=== PATIENT | female | born 1950 | race Caucasian/White ===

== ENCOUNTER 2017-01-18 16:23 | Inpatient (IN) | payer MEDICARE, BC ==
[~2017-01-18] VITALS: Ht 165.1 cm; Wt 54.9 kg
--- NOTE | 2017-01-18 17:00 | NUR ---
GPS/RN PATIENT ADMITTED ON A 5150 HOLD FOR GD, UNDER THE CARE OF DR VARGAS AND DR RICHARD. BOTH DR,S NOTIFIED OF ADMISSION. PER HOLD PATIENT ATTEMPTED TO CLIMB A 7 FOOT FENCE AND IS DISORGANIZED, DELUSIONAL, PARANOID, THINKS PEOPLE ARE TRYING TO GET HER AND REFUSING MEDICATION. UPON FACE TO FACE EVALUATION, PATIENT IS ALERT X 2, ANXIOUS, DISORGANIZED THOUGHTS, STATED PEOPLE WERE BREAKING INTO HER HOME EACH WEEK AND POLICE ARE REFUSING TO HELP HER. VITAL SIGNS STABLE, DENIES SI/HI, WILL CONTINUE TO MONITOR Q 15 MIN FOR SAFETY AND BEHAVIOR.
[2017-01-18] MEDS ORDERED: MAGNESIUM HYDROXIDE 30 ML UDC PO PRN (17:30)
[2017-01-18] MEDS ORDERED: MAG HYDROX/AL HYDROX/SIMETH 30 ML UDC PO PRN (17:30)
[2017-01-18] MEDS ORDERED: ACETAMINOPHEN 325 MG TABLET PO PRN (17:30)
[2017-01-18 18:52] VITALS: BP 139/90
[2017-01-18] MEDS ORDERED: CALC-838 PO (19:01)
[2017-01-18] MEDS ORDERED: DONE5TAB34 PO (19:01)
[2017-01-18] MEDS ORDERED: MULT-1160 PO (19:01)
[2017-01-18] MEDS ORDERED: QUET50TA PO (19:01)
[2017-01-18] MEDS ORDERED: VALA500T35 PO (19:01)
[2017-01-18] MEDS ORDERED: POTA20TA83 PO (20:10)
[2017-01-18] MEDS ORDERED: SULF1TAB48 PO (20:10)
[2017-01-18 20:24] VITALS: BP 141/83
[2017-01-18] MEDS: TEMAZEPAM 7.5 MG CAPSULE PO PRN (23:20)
[2017-01-19 08:00] VITALS: BP 130/71
[2017-01-19 09:44] LABS: ALBUMIN 4.1 g/dL (3.4-5.0); BILIRUBIN,TOTAL 0.8 mg/dL (0.2-1.0); CALCIUM, SERUM 9.3 mg/dL (8.5-10.1); CREATININE 0.9 mg/dL (0.6-1.3); POTASSIUM 3.9 mmol/L (3.5-5.1); TOTAL PROTEIN, SERUM 7.7 g/dL (6.4-8.2)
--- NOTE | 2017-01-19 12:47 | NUR ---
Initial DC Plan: Patient resides at [facility] ([address] [place] [address]; [phone]).Facility provided letter of agreement to accept the patient once she is discharged from the hospital and stated that they have their own transportation and route salesman and driver available that can pick her up once she is ready (between the hours of 10am and 2pm). BASIM confirmed with Francheska from [facility] who confirmed that patient is able to return when ready for discharge. Facility will need advanced notice of patient's discharge. SW to contact Ann from the facility once patient is ready. Sw attempted to contact the patient's Guicho Manley ([phone]) however he did not answer and SW left a message with her contact information. SW will help form a safe and proper discharge. Addendum: 01/20/17 at 0918 by CHINO STALLWORTH Spoke to patient's Guicho Leyvane ([phone]) who stated that he would like for patient to return back to [facility]. Also stated that patient was taking Seroquel 200mg upon the recommendation of her general practitioner. SW informed assigned licensed social worker Wilver regarding this information and she is to contact the patient's psychiatrist. requested to speak to patient's psychiatrist and assigned licensed social worker will facilitate this.
[2017-01-19] MEDS ORDERED: POTASSIUM CHLORIDE 20 MEQ TAB.PRT.SR PO SCH (13:30)
[2017-01-19] MEDS ORDERED: BENZTROPINE MESYLATE (1 MG) 1 MG TABLET PO SCH (14:30)
[2017-01-19] MEDS: SERTRALINE HCL 25 MG TABLET PO SCH (15:34)
[2017-01-19 16:00] VITALS: BP 149/80
[2017-01-19] MEDS: SULFAMETH/TRIMETH 800/160 MG 1 UDTAB TABLET PO SCH (16:23)
[2017-01-19] MEDS: HALOPERIDOL 1 MG TABLET PO SCH (16:24)
[2017-01-19] MEDS: LORAZEPAM 0.5 MG TABLET PO PRN (19:26)
[2017-01-19 20:00] VITALS: BP 141/95
[2017-01-19] MEDS: TEMAZEPAM 7.5 MG CAPSULE PO PRN (20:35)
[2017-01-20 06:53] LABS: BASOPHILS % (AUTO) 0.8 % (0.0-2.0); EOSINOPHILS # (AUTO) 0.1 /CMM (0.0-0.7); EOSINOPHILS % (AUTO) 1.5 % (0.0-6.0); HEMATOCRIT 39 % (33-45); HEMOGLOBIN 12.8 g/dL (11.5-14.8); LYMPHOCYTES # (AUTO) 1.4 /CMM (0.8-4.8); MEAN CORPUSCULAR HEMOGLOBIN 31 PG (26.0-33.0); MEAN CORPUSCULAR HGB CONC 33 g/dl (31.0-36.0); MEAN CORPUSCULAR VOLUME 92 fL (82-100); MONOCYTES # (AUTO) 0.5 /CMM (0.1-1.30); MONOCYTES % (AUTO) 9.2 % (2.0-12.0); NEUTROPHILS # (AUTO) 3.7 /CMM (1.8-8.9); NEUTROPHILS % (AUTO) 64.5 % (43.0-81.0); PLATELET COUNT (AUTO) 313 /CMM (150-450); RDW COEFFICIENT OF VARIATION 13.4 (11.5-15.0); RED BLOOD CELL COUNT(AUTO) 4.19 MIL/uL (4.0-5.2); WHITE BLOOD COUNT (AUTO) 5.7 K/uL (4.3-11.0)
[2017-01-20 08:00] VITALS: BP 123/75
[2017-01-20] MEDS: VALACYCLOVIR HCL 500 MG TABLET PO SCH (08:47)
[2017-01-20] MEDS: SULFAMETH/TRIMETH 800/160 MG 1 UDTAB TABLET PO SCH ×2 (08:47→16:47)
[2017-01-20] MEDS: SERTRALINE HCL 25 MG TABLET PO SCH (08:47)
[2017-01-20] MEDS: BENZTROPINE MESYLATE (1 MG) 1 MG TABLET PO SCH ×2 (08:47→16:48)
[2017-01-20] MEDS: MULTIPLE VIT/MINERALS 1 EA TABLET PO SCH (08:47)
[2017-01-20] MEDS: HALOPERIDOL 1 MG TABLET PO SCH ×2 (08:47→16:47)
[2017-01-20] MEDS: DONEPEZIL 5 MG TABLET PO SCH (08:47)
[2017-01-20] MEDS: CHOLECALCIFEROL 1,000 UNIT TABLET (VIT D3) PO SCH (08:48)
--- NOTE | 2017-01-20 10:15 | NUR ---
Vegetable Canner informed patient's psychiatrist regarding patient's 's concerns regarding patient's medication. Psychiatrist will follow-up with patient's .
[2017-01-20 16:07] VITALS: BP 146/91
[2017-01-20 20:00] VITALS: BP 126/77
[2017-01-20] MEDS: TEMAZEPAM 7.5 MG CAPSULE PO PRN (22:21)
[2017-01-21 08:31] VITALS: BP 123/78
[2017-01-21] MEDS: CHOLECALCIFEROL 1,000 UNIT TABLET (VIT D3) PO SCH (09:01)
[2017-01-21] MEDS: SULFAMETH/TRIMETH 800/160 MG 1 UDTAB TABLET PO SCH ×2 (09:01→16:17)
[2017-01-21] MEDS: SERTRALINE HCL 25 MG TABLET PO SCH (09:02)
[2017-01-21] MEDS: DONEPEZIL 5 MG TABLET PO SCH (09:02)
[2017-01-21] MEDS: VALACYCLOVIR HCL 500 MG TABLET PO SCH (09:02)
[2017-01-21] MEDS: BENZTROPINE MESYLATE (1 MG) 1 MG TABLET PO SCH ×2 (09:02→16:18)
[2017-01-21] MEDS: HALOPERIDOL 1 MG TABLET PO SCH ×2 (09:02→16:17)
[2017-01-21] MEDS: MULTIPLE VIT/MINERALS 1 EA TABLET PO SCH (09:02)
--- NOTE | 2017-01-21 11:11 | NUR ---
DR. VARGAS GAVE AN ORDER FOR THE DENIAL RIGHTS FOR ROOM SEARCH TO LOOK FOR THE MISSING CORDLESS PHONES.
[2017-01-21 16:21] VITALS: BP 146/85
[2017-01-21 20:00] VITALS: BP 146/76
[2017-01-22 08:00] VITALS: BP 148/77
[2017-01-22] MEDS: VALACYCLOVIR HCL 500 MG TABLET PO SCH (08:43)
[2017-01-22] MEDS: SERTRALINE HCL 25 MG TABLET PO SCH (08:43)
[2017-01-22] MEDS: HALOPERIDOL 1 MG TABLET PO SCH ×2 (08:43→17:31)
[2017-01-22] MEDS: BENZTROPINE MESYLATE (1 MG) 1 MG TABLET PO SCH ×2 (08:43→17:31)
[2017-01-22] MEDS: DONEPEZIL 5 MG TABLET PO SCH (08:43)
[2017-01-22] MEDS: MULTIPLE VIT/MINERALS 1 EA TABLET PO SCH (08:43)
[2017-01-22] MEDS: SULFAMETH/TRIMETH 800/160 MG 1 UDTAB TABLET PO SCH ×2 (08:43→17:31)
[2017-01-22] MEDS: CHOLECALCIFEROL 1,000 UNIT TABLET (VIT D3) PO SCH (08:43)
--- NOTE | 2017-01-22 13:50 | NUR ---
RT PATIENT WAS SEEN WALKING THROUGH HALLWAYS AND WAS ASKED IF SHE HAD ANY CHEST PAIN, PATIENT SAID NO. PATIENT WAS ASKED IF SHE WOULD ALLOW US TO PERFORM EKG, PATIENT SAID NO SHE DOES NOT NEED IT. NURSING STAFF INFORMED. HOTEL SERVICE SUPERVISOR NURSE SERENITY OLIVEIRA.
[2017-01-22 16:00] VITALS: BP 130/70
[2017-01-22 20:17] VITALS: BP 146/99
[2017-01-23 08:00] VITALS: BP 131/77
[2017-01-23] MEDS: DONEPEZIL 5 MG TABLET PO SCH (08:29)
[2017-01-23] MEDS: MULTIPLE VIT/MINERALS 1 EA TABLET PO SCH (08:30)
[2017-01-23] MEDS: SULFAMETH/TRIMETH 800/160 MG 1 UDTAB TABLET PO SCH ×2 (08:30→16:31)
[2017-01-23] MEDS: BENZTROPINE MESYLATE (1 MG) 1 MG TABLET PO SCH ×2 (08:30→16:31)
[2017-01-23] MEDS: HALOPERIDOL 1 MG TABLET PO SCH ×2 (08:31→16:32)
[2017-01-23] MEDS: SERTRALINE HCL 25 MG TABLET PO SCH (08:31)
[2017-01-23] MEDS: CHOLECALCIFEROL 1,000 UNIT TABLET (VIT D3) PO SCH (08:32)
[2017-01-23] MEDS: VALACYCLOVIR HCL 500 MG TABLET PO SCH (08:33)
[2017-01-23 16:00] VITALS: BP 123/77
[2017-01-23 21:35] VITALS: BP 123/63
[2017-01-23] MEDS: TEMAZEPAM 7.5 MG CAPSULE PO PRN (22:40)
--- NOTE | 2017-01-24 | NUR ---
GPS RN NOTE: 1929: RECEIVED A REPORT THAT PATIENT WAS CRAWLING TOWARDS RESTROOM. ASSISTED THE PATIENT BACK TO BED. ASSESSMENT DONE. NO VISUAL INJURY NOTED AT THIS TIME. EXTREMITIES ABLE TO MOVE WITHOUT C/O PAIN AND DISCOMFORT. NO SOB, NO ACUTE DISTRESS, BREATHING EVEN AND UNLABORED, PATIENT DENIES PAIN AND DISCOMFORT, CONFUSED AND FORGETFUL, SAME BASELINE, FORGOT WHAT HAPPENED. WILL CONTINUE TO MONITOR. 0000: PATIENT STABLE. NO VISUAL INJURY. NO SIGNIFICANT CHANGE OF CONDITION NOTED. NOTIFIED SCOTTIE BUTLER WITH NO NEW ORDER GIVEN. WILL CONTINUE TO MONITOR.
[2017-01-24] MEDS: MULTIPLE VIT/MINERALS 1 EA TABLET PO SCH (08:14)
[2017-01-24] MEDS: DONEPEZIL 5 MG TABLET PO SCH (08:14)
[2017-01-24] MEDS: HALOPERIDOL 1 MG TABLET PO SCH (08:15)
[2017-01-24] MEDS: SULFAMETH/TRIMETH 800/160 MG 1 UDTAB TABLET PO SCH ×2 (08:15→16:42)
[2017-01-24] MEDS: BENZTROPINE MESYLATE (1 MG) 1 MG TABLET PO SCH ×2 (08:15→16:42)
[2017-01-24] MEDS: VALACYCLOVIR HCL 500 MG TABLET PO SCH (08:16)
[2017-01-24] MEDS: CHOLECALCIFEROL 1,000 UNIT TABLET (VIT D3) PO SCH (08:16)
[2017-01-24] MEDS: SERTRALINE HCL 25 MG TABLET PO SCH (08:17)
[2017-01-24 08:35] VITALS: BP 107/64
[2017-01-24] MEDS ORDERED: HALOPERIDOL DECANOATE IM 100 MG/ML AMPUL IM ONE (14:00)
[2017-01-24 16:00] VITALS: BP 108/70
[2017-01-24] MEDS: TEMAZEPAM 7.5 MG CAPSULE PO PRN (22:24)
[2017-01-25 08:00] VITALS: BP 125/80
[2017-01-25] MEDS: LORAZEPAM 0.5 MG TABLET PO PRN (08:08)
[2017-01-25] MEDS: HALOPERIDOL 1 MG TABLET PO SCH ×2 (08:08→16:22)
[2017-01-25] MEDS: BENZTROPINE MESYLATE (1 MG) 1 MG TABLET PO SCH ×2 (08:08→16:22)
[2017-01-25] MEDS: CHOLECALCIFEROL 1,000 UNIT TABLET (VIT D3) PO SCH (08:08)
--- NOTE | 2017-01-25 08:08 | NUR ---
[id number]: GAVE ATIVAN 0.5 MG PO DUE TO SEVERE ANXIETY UPON PT REQUEST AND WILL CONTINUE TO MONITOR FOR EFFECTIVENESS
[2017-01-25] MEDS: SULFAMETH/TRIMETH 800/160 MG 1 UDTAB TABLET PO SCH ×2 (08:09→16:22)
[2017-01-25] MEDS: VALACYCLOVIR HCL 500 MG TABLET PO SCH (08:09)
[2017-01-25] MEDS: MULTIPLE VIT/MINERALS 1 EA TABLET PO SCH (08:09)
[2017-01-25] MEDS: DONEPEZIL 5 MG TABLET PO SCH (08:09)
[2017-01-25] MEDS ORDERED: SERTRALINE HCL 25 MG TABLET PO SCH (09:00)
[2017-01-25] MEDS: BOOST PLUS FOOD-VANILLA 237 ML BOX PO SCH (14:09)
[2017-01-25 17:16] VITALS: BP 124/74
[2017-01-25] MEDS: QUETIAPINE FUMARATE 25 MG TABLET PO SCH (21:37)
[2017-01-26] MEDS: TEMAZEPAM 7.5 MG CAPSULE PO PRN ×2 (00:30→22:21)
[2017-01-26 08:00] VITALS: BP 115/58
[2017-01-26] MEDS ORDERED: HALOPERIDOL DECANOATE IM 100 MG/ML AMPUL IM ONE (09:00)
[2017-01-26] MEDS: MULTIPLE VIT/MINERALS 1 EA TABLET PO SCH (09:03)
[2017-01-26] MEDS: CHOLECALCIFEROL 1,000 UNIT TABLET (VIT D3) PO SCH (09:03)
[2017-01-26] MEDS: DONEPEZIL 5 MG TABLET PO SCH (09:03)
[2017-01-26] MEDS: SULFAMETH/TRIMETH 800/160 MG 1 UDTAB TABLET PO SCH ×2 (09:03→16:34)
[2017-01-26] MEDS: BENZTROPINE MESYLATE (1 MG) 1 MG TABLET PO SCH ×2 (09:03→16:36)
[2017-01-26] MEDS: VALACYCLOVIR HCL 500 MG TABLET PO SCH (09:03)
[2017-01-26] MEDS: HALOPERIDOL 1 MG TABLET PO SCH ×2 (09:03→16:35)
[2017-01-26] MEDS: BOOST PLUS FOOD-VANILLA 237 ML BOX PO SCH (09:13)
--- NOTE | 2017-01-26 13:22 | NUR ---
SW followed up with the psychiatrist and pt will be ready for discharge on Monday back to her facility.
[2017-01-26 16:00] VITALS: BP 111/70
[2017-01-26 20:00] VITALS: BP 115/79
[2017-01-26] MEDS: QUETIAPINE FUMARATE 25 MG TABLET PO SCH (21:09)
[2017-01-27 07:36] LABS: EOSINOPHILS # (AUTO) 0.3 /CMM (0.0-0.7); EOSINOPHILS % (AUTO) 5.5 % (0.0-6.0); HEMATOCRIT 40 % (33-45); HEMOGLOBIN 13.3 g/dL (11.5-14.8); LYMPHOCYTES # (AUTO) 0.6 /CMM (0.8-4.8); LYMPHOCYTES % (AUTO) 12.3 % (20.0-44.0); MEAN CORPUSCULAR HEMOGLOBIN 31 PG (26.0-33.0); MEAN CORPUSCULAR HGB CONC 34 g/dl (31.0-36.0); MEAN CORPUSCULAR VOLUME 92 fL (82-100); MONOCYTES # (AUTO) 0.4 /CMM (0.1-1.30); MONOCYTES % (AUTO) 8.9 % (2.0-12.0); NEUTROPHILS # (AUTO) 3.6 /CMM (1.8-8.9); NEUTROPHILS % (AUTO) 73.3 % (43.0-81.0); PLATELET COUNT (AUTO) 228 /CMM (150-450); RDW COEFFICIENT OF VARIATION 13.4 (11.5-15.0); RED BLOOD CELL COUNT(AUTO) 4.32 MIL/uL (4.0-5.2); WHITE BLOOD COUNT (AUTO) 4.9 K/uL (4.3-11.0)
[2017-01-27 07:52] LABS: CALCIUM, SERUM 8.8 mg/dL (8.5-10.1); CREATININE 0.8 mg/dL (0.6-1.3); MAGNESIUM 2.2 mg/dL (1.8-2.4); POTASSIUM 4.2 mmol/L (3.5-5.1)
[2017-01-27 08:00] VITALS: BP 120/75
[2017-01-27] MEDS: HALOPERIDOL 1 MG TABLET PO SCH (08:29)
[2017-01-27] MEDS: BENZTROPINE MESYLATE (1 MG) 1 MG TABLET PO SCH ×2 (08:30→16:24)
[2017-01-27] MEDS: VALACYCLOVIR HCL 500 MG TABLET PO SCH (08:30)
[2017-01-27] MEDS: MULTIPLE VIT/MINERALS 1 EA TABLET PO SCH (08:30)
[2017-01-27] MEDS: SULFAMETH/TRIMETH 800/160 MG 1 UDTAB TABLET PO SCH (08:32)
[2017-01-27] MEDS: BOOST PLUS FOOD-VANILLA 237 ML BOX PO SCH (08:34)
[2017-01-27] MEDS: DONEPEZIL 5 MG TABLET PO SCH (08:34)
[2017-01-27] MEDS: CHOLECALCIFEROL 1,000 UNIT TABLET (VIT D3) PO SCH (08:34)
[2017-01-27 16:00] VITALS: BP 137/83
--- NOTE | 2017-01-27 16:00 | NUR ---
BASIM spoke with MD and pt's , Guicho Manley ([phone]) and it was decided that pt. cannot return to the open unit. BASIM faxed a referral to [facility] [id number] [facility], [place] [address] . will check with December from the facility. Addendum: 01/30/17 at 1129 by LARRY STALLWORTH Pt. has been accepted to [facility] per December from admission.
[2017-01-27] MEDS ORDERED: BENZTROPINE MESYLATE (1 MG) 1 MG TABLET PO PRN (16:30)
[2017-01-27 20:00] VITALS: BP 132/56
[2017-01-27 20:15] VITALS: BP 132/56
[2017-01-27] MEDS: QUETIAPINE FUMARATE 25 MG TABLET PO SCH (21:13)
[2017-01-27] MEDS: TEMAZEPAM 7.5 MG CAPSULE PO PRN (22:18)
[2017-01-28 08:00] VITALS: BP 101/61
[2017-01-28] MEDS: CHOLECALCIFEROL 1,000 UNIT TABLET (VIT D3) PO SCH (08:52)
[2017-01-28] MEDS: DONEPEZIL 5 MG TABLET PO SCH (08:52)
[2017-01-28] MEDS: VALACYCLOVIR HCL 500 MG TABLET PO SCH (08:52)
[2017-01-28] MEDS: BOOST PLUS FOOD-VANILLA 237 ML BOX PO SCH (08:52)
[2017-01-28] MEDS: BENZTROPINE MESYLATE (1 MG) 1 MG TABLET PO SCH ×2 (08:52→16:31)
[2017-01-28] MEDS: MULTIPLE VIT/MINERALS 1 EA TABLET PO SCH (08:52)
[2017-01-28 16:00] VITALS: BP 107/68
[2017-01-28 20:00] VITALS: BP 106/66
[2017-01-28] MEDS: QUETIAPINE FUMARATE 25 MG TABLET PO SCH (21:15)
[2017-01-28] MEDS: TEMAZEPAM 7.5 MG CAPSULE PO PRN (22:07)
[2017-01-29 08:00] VITALS: BP 101/62
[2017-01-29] MEDS: MULTIPLE VIT/MINERALS 1 EA TABLET PO SCH (08:04)
[2017-01-29] MEDS: BENZTROPINE MESYLATE (1 MG) 1 MG TABLET PO SCH ×2 (08:04→16:44)
[2017-01-29] MEDS: DONEPEZIL 5 MG TABLET PO SCH (08:04)
[2017-01-29] MEDS: CHOLECALCIFEROL 1,000 UNIT TABLET (VIT D3) PO SCH (08:04)
[2017-01-29] MEDS: BOOST PLUS FOOD-VANILLA 237 ML BOX PO SCH (08:04)
[2017-01-29] MEDS: VALACYCLOVIR HCL 500 MG TABLET PO SCH (08:04)
[2017-01-29 16:00] VITALS: BP 133/66
[2017-01-29 20:12] VITALS: BP 100/62
[2017-01-29] MEDS: QUETIAPINE FUMARATE 25 MG TABLET PO SCH (22:00)
[2017-01-29] MEDS: TEMAZEPAM 7.5 MG CAPSULE PO PRN (22:11)
--- NOTE | 2017-01-30 00:42 | NUR ---
Pt has been quite passive, anxious, blunted, unkempt, & fragmented but compliant/redirectable.
[2017-01-30 08:00] VITALS: BP 123/88
[2017-01-30] MEDS: CHOLECALCIFEROL 1,000 UNIT TABLET (VIT D3) PO SCH (08:22)
[2017-01-30] MEDS: BENZTROPINE MESYLATE (1 MG) 1 MG TABLET PO SCH (08:22)
[2017-01-30] MEDS: DONEPEZIL 5 MG TABLET PO SCH (08:22)
[2017-01-30] MEDS: MULTIPLE VIT/MINERALS 1 EA TABLET PO SCH (08:22)
[2017-01-30] MEDS: VALACYCLOVIR HCL 500 MG TABLET PO SCH (08:22)
[2017-01-30] MEDS: BOOST PLUS FOOD-VANILLA 237 ML BOX PO SCH (08:47)
--- NOTE | 2017-01-30 12:50 | NUR ---
GPS/RN PATIENT CLEARED FOR DISCHARGE TO [facility] BY DR VARGAS AND TOAN VILLARREAL. ALL D/C PAPERWORK COMPLETED AND SIGNED BY PATIENT, BELONGINGS RETURNED, D/C PHOTOS TAKEN, PACKET AND MEDICATIONS EXPLAINED TO PATIENT, PATIENT DENIES SI/HI/AH AT TIME OF DISCHARGE,REPORT CALLED TO SAMSON AT FACILITY, PSYCHIATRIC TREATMENT PLANS MET, LEFT UNIT STABLE CONDITION, CALM, COOPERATIVE, WITH EMT AT SIDE.
--- NOTE | 2017-01-30 16:33 | NUR ---
Discharge Note: Patient was discharged to [facility] [address] [place] [address] . Via med response. Patient's , Guicho Manley ([phone]) was notified and was agreeable with the discharge plan. Patient's mood and affect were appropriate upon discharge. Patient denied suicidal/ homicidal ideations. Facilitated info to IDT team who are in agreement with discharge arrangement. The multidisciplinary exitcare form was done, printed, signed, and given to the patient.
== END 2017-01-30 12:30 | DRG 885 ==
LOC: ER 16:25 → GPS 16:52
PROVIDERS: ADMIT Psychiatry & Neurology Psychosomatic Medicine
DX: F29 Unspecified psychosis not due to a substance or known physiological condition (principal); F02.80 Dementia in other diseases classified elsewhere, unspecified severity, without behavioral disturbance, psychotic disturbance, mood disturbance, and anxiety; N17.0 Acute kidney failure with tubular necrosis; N39.0 Urinary tract infection, site not specified; F32.9 Major depressive disorder, single episode, unspecified; G30.0 Alzheimer's disease with early onset; I10 Essential (primary) hypertension; B96.89 Other specified bacterial agents as the cause of diseases classified elsewhere; Z73.6 Limitation of activities due to disability
CPT/HCPCS: 36415; 80048-TC; 80053-TC; 83735-TC; 85025-TC; 87081-TC; J1631